=== PATIENT | male | born 1995 | race Caucasian/White ===

== ENCOUNTER 2017-11-26 21:13 | Emergency (ER) | payer SELFPAY ==
[2017-11-26 23:09] LABS: Amorphous Sediment,Urine Occasional /hpf; Appearance,Urine Turbid (Clear); Bilirubin,Urine Negative (Negative); Blood,Urine Negative (Negative); Color,Urine Yellow; Glucose,Urine (UA) Negative (Negative); Ketones,Urine Negative (Negative); Leukocyte Esterase,Urine Negative (Negative); Mucus,Urine Few /hpf; Nitrite,Urine Negative (Negative); PH, Urine 7.5 (5.0-8.0); Protein,Urine Trace (Negative); Specific Gravity,Urine 1.015 (1.001-1.035); Squamous Epithelial Cell,Urine 1 /hpf (0-4); Urobilinogen,Urine <2.0 mg/dL (<2.0)
[2017-11-26 23:10] LABS: Amphetamine Screen,Urine Not Detected (NotDetected); Barbiturate Screen,Urine Not Detected (NotDetected); Benzodiazepines Screen,Urine Not Detected (NotDetected); Cocaine Screen,Urine Not Detected (NotDetected); Methadone Screen, Urine Not Detected (NotDetected); Opiate Screen,Urine Not Detected (NotDetected); Oxycodone Screen, Urine Not Detected (NotDetected); Phencyclidine Screen,Urine Not Detected (NotDetected); Tricyclic Antidepressant,Urine Not Detected (NotDetected); Urn Cannabinoid Scrn Detected (NotDetected)
--- NOTE | 2017-11-26 23:11 | ED ---
Psych HPI - General Source: patient, family, police Mode of arrival: ambulatory <Terrance Delgado - Last Filed: 11/26/17 23:09> <Thomas Pagan - Last Filed: 11/27/17 01:43> - General Chief Complaint: Psychiatric Symptoms Stated Complaint: Mental Health Eval Time Seen by Provider: 11/26/17 22:06 - History of Present Illness Initial Comments: This is a 22-year-old male who presents emergent department for suicidal threat. The patient states he got in an argument with his parents earlier tonight and they were arguing. He states that at that time he got very upset and stated that he wanted to kill himself. He picked up an unloaded gun and stated that this would be the way that he would do it. His father called police who petitioned him and brought him to the hospital. The patient currently denies any suicidal ideation. He states that he used to have a history of cutting however has not done that in quite some time. States he has never attempted suicide in the past. He is not currently medicated for depression or does not see a mental health professional. He states that he only said these things because he was angry at the time. Denies any physical complaints at this time. States that he is only thirsty. Wants to go home and play video games. (Terrance Delgado) - Related Data Home Medications Medication Instructions Recorded Confirmed No Known Home Medications [No 11/26/17 11/26/17 Known Home Medications] Allergies Allergy/AdvReac Type Severity Reaction Status Date / Time No Known Allergies Allergy Verified 11/26/17 22:04 Review of Systems ROS Other: All systems not noted in ROS Statement are negative. <Terrance Delgado - Last Filed: 11/26/17 23:09> ROS Other: All systems not noted in ROS Statement are negative. <Thomas Pagan - Last Filed: 11/27/17 01:43> ROS Statement: Those systems with pertinent positive or pertinent negative responses have been documented in the HPI. Past Medical History Past Medical History: No Reported History History of Any Multi-Drug Resistant Organisms: None Reported Past Surgical History: No Surgical Hx Reported Past Psychological History: Depression Smoking Status: Former smoker Past Alcohol Use History: None Reported Past Drug Use History: Marijuana <Terrance Delgado - Last Filed: 11/26/17 23:09> General Exam Limitations: no limitations <Terrance Delgado - Last Filed: 11/26/17 23:09> <Thomas Pagan - Last Filed: 11/27/17 01:43> - General Exam Comments Initial Comments: Constitutional: [Awake alert] [Appears comfortable] Head: [Normocephalic atraumatic] Eyes: [no conjunctival injection] [No scleral icterus] [EOMI] Neck: [No JVD] [Supple] Heart: [Regular rate rhythm] [normal S1-S2] [no murmurs] Lungs: [Clear to auscultation bilaterally] [No wheezing] [No rales] Abdomen: [Soft] [nondistended] [nontender] Extremities: [Non edematous] [DP pulses intact] [Radial pulses intact] Neuro: [A&Ox3] [No focal neurologic deficits] Psych: [Appropriate mood and affect] (Terrance Delgado) Vital Signs 11/26/17 21:27 Temperature 96.9 F L Medical Decision Making <Terrance Delgado - Last Filed: 11/26/17 23:09> <Thomas Pagan - Last Filed: 11/27/17 01:43> - Medical Decision Making 22 male seen evaluated psychiatry, will be discharged home (Thomas Pagan ) - Lab Data Lab Results 11/26/17 Range/Units 22:44 Urine Color Yellow Urine Appearance Turbid (Clear) Urine pH 7.5 (5.0-8.0) Ur Specific [place] 1.015 (1.001-1.035) Urine Protein Trace H (Negative) Urine Glucose (UA) Negative (Negative) Urine Ketones Negative (Negative) Urine Blood Negative (Negative) Urine Nitrite Negative (Negative) Urine Bilirubin Negative (Negative) Urine Urobilinogen <2.0 (<2.0) mg/dL Ur Leukocyte Esterase Negative (Negative) Ur Squamous Epith Cells 1 (0-4) /hpf Amorphous Sediment Occasional H (None) /hpf Urine Mucus Few H (None) /hpf Urine Opiates Screen Not Detected (NotDetected) Ur Oxycodone Screen Not Detected (NotDetected) Urine Methadone Screen Not Detected (NotDetected) Ur Propoxyphene Screen Not Detected (NotDetected) Ur Barbiturates Screen Not Detected (NotDetected) U Tricyclic Antidepress Not Detected (NotDetected) Ur Phencyclidine Scrn Not Detected (NotDetected) Ur Amphetamines Screen Not Detected (NotDetected) U Methamphetamines Scrn Not Detected (NotDetected) U Benzodiazepines Scrn Not Detected (NotDetected) Urine Cocaine Screen Not Detected (NotDetected) U Marijuana (THC) Screen Detected H (NotDetected) Disposition <Terrance Delgado - Last Filed: 11/26/17 23:09> <Thomas Pagan - Last Filed: 11/27/17 01:43> Clinical Impression: Acute anxiety, Depression Disposition: HOME SELF-CARE Condition: Good Instructions: Depression (ED) Referrals: None,Stated [Primary Care Provider] - 1-2 days
[2017-11-27 02:01] VITALS: BP 135/62; PULSE 68; RESP 16; TEMP 97.9
== END 2017-11-27 02:00 | disposition home or self-care (01) ==
LOC: EC 21:13
DX: F41.8 Other specified anxiety disorders (principal); Z87.891 Personal history of nicotine dependence
CPT/HCPCS: 80306; 81001; 99284